=== PATIENT | female | born 1980 | race Caucasian/White ===

== ENCOUNTER 2016-12-26 10:27 | Emergency (ER) | payer SELFPAY ==
[~2016-12-26] VITALS: Ht 165.1 cm; Wt 57.0 kg
[2016-12-26 10:29] VITALS: BP 126/78; PULSE 102; RESP 20; TEMP 98.6; O2SAT 99
[2016-12-26] MEDS ORDERED: NATU16.2 PO (10:48)
== END 2016-12-26 11:06 | disposition left against medical advice (07) ==
LOC: EDBD → NEPK 10:27
DX: M25.562 Pain in left knee (principal)
CPT/HCPCS: 99281